=== PATIENT | female | born 1950 | race Caucasian/White ===

== ENCOUNTER → 2017-04-12 | Outpatient (CLI) | payer MEDICARE, OTHER ==
--- NOTE | 2017-04-13 10:12 | MM ---
Reason for exam: screening (asymptomatic). Last mammogram was performed 3 years and 5 months ago. Physical Findings: A clinical breast exam by your physician is recommended on an annual basis and results should be correlated with mammographic findings. MG Screening Mammo w CAD Bilateral CC and MLO view(s) were taken. Prior study comparison: November 12, 2013, bilateral digital screening mammo w/CAD. December 08, 2011, mammogram, performed at [facility]. There are scattered fibroglandular densities. There is no discrete abnormality. ASSESSMENT: Negative, BI-RAD 1 RECOMMENDATION: Routine screening mammogram of both breasts in 1 year.
== END | disposition home or self-care (01) ==
LOC: RADMAMWWP 16:55
PROVIDERS: ATTEND Family Medicine
DX: Z12.31 Encounter for screening mammogram for malignant neoplasm of breast (principal)

== ENCOUNTER → 2017-06-07 | Outpatient (CLI) | payer MEDICARE, OTHER ==
[2017-06-07 08:31] LABS: EKG EKG PERFORMED
[2017-06-07 10:10] LABS: CHCM 33.6; HDW 2.71; HGB 9.5 gm/dL (11.4-16.0); MCH 31.6 pg (25.0-35.0); MCV 92.9 fL (80.0-100.0); Mean Platelet Volume 7.3; RBC 3.01 m/uL (3.80-5.40); RDW 14.4 % (11.5-15.5); WBC 9.3 k/uL (3.8-10.6)
[2017-06-07 10:37] LABS: Blood Urea Nitrogen 73 mg/dL (7-17); Potassium 5.2 mmol/L (3.5-5.1)
[2017-06-07 10:41] LABS: Non-African American GFR(MDRD) 14 (>60 ml/min/1.73 sqM)
== END ==
LOC: LABPAT 08:21
PROVIDERS: ATTEND Anesthesiology
DX: Z01.812 Encounter for preprocedural laboratory examination (principal)
CPT/HCPCS: 82565; 84132; 84520; 85027; 93005

== ENCOUNTER 2017-06-08 06:30 | Day surgery (SDC) | payer MEDICARE, OTHER ==
[2017-06-06 14:19] VITALS: BMI 29.0
[~2017-06-08 06:30] MED LIST changes: -HEPARIN SODIUM,PORCINE 5,000 UNIT/ML 1 ML VIAL SQ ONE; +LACTATED RINGERS 1,000 ML IV SCH; +MIDAZOLAM 2 MG/2 ML VIAL IV PRN; +ONDANSETRON 4 MG/2 ML VIAL IVP ONE; -ceFAZolin 2 GM in SODIUM CHLORIDE 0.9% 100 ML IVPB ONE; +fentaNYL (PF) 50 MCG/ML 2 ML AMP IV PRN
[2017-06-08] MEDS ORDERED: SODIUM CHLORIDE 0.9% 1,000 ML IV ONE (07:02)
[2017-06-08] MEDS ORDERED: LIDOCAINE 1% 20 ML VIAL (10MG/ML) FOR IV START INTRADERMA ONE (07:09)
[2017-06-08] MEDS ORDERED: DEXAMETHASONE SOD PHOS (MDV) 100 MG/10 ML VIAL IVP ONE (07:09)
[2017-06-08] MEDS ORDERED: HEPARIN SODIUM,PORCINE 5,000 UNIT/ML 1 ML VIAL SQ STA (07:54)
[2017-06-08] MEDS ORDERED: ceFAZolin 2 GM in SODIUM CHLORIDE 0.9% 100 ML IVPB STA (07:54)
--- NOTE | 2017-06-08 07:54 | P.GSHP ---
History of Present Illness H&P Date: 06/08/17 Chief Complaint: Renal failure Patient here today for peritoneal dialysis catheter insertion. She has a long- standing history of progressive renal insufficiency. She is now requiring dialysis. She is currently not on dialysis. (The options of hemodialysis and peritoneal dialysis have been discussed. She is most interested in peritoneal dialysis. Past Medical History Past Medical History: Diabetes Mellitus, Fibromyalgia, Hearing Disorder / Deafness, Hyperlipidemia, Hypertension, Myocardial Infarction (SC), Osteoarthritis (OA), Renal Disease, Thyroid Disorder Additional Past Medical History / Comment(s): ANEMIA, GOUT., STATES MRSA AFTER KNEE INJECTIONS (2004), COCHLEAR IMPLANT RIGHT EAR- USES A MAGNETIC PROCESSOR TO HEAR., DEAF LEFT EAR , NO SIGN LANGUAGE, CAN LIP READ ., PT HAD CATARACT SURGERY TODAY(06/06/17), PT IS APPLYING FOR KIDNEY TRANSPLANT LIST AT [facility]. Last Myocardial Infarction Date:: 2003 History of Any Multi-Drug Resistant Organisms: MRSA Date of last positivie culture/infection: 2004. Bilateral legs MDRO Source:: patient Past Surgical History: Ear Surgery, Heart Catheterization With Stent, Hysterectomy, Joint Replacement, Orthopedic Surgery Additional Past Surgical History / Comment(s): Heel spurs (16 yrs old), thyroidectomy, right hip replacement 2003, shoulder rotator cuff , R ear cochlear implant., cataract surgery April, and 06/06/17. Past Anesthesia/Blood Transfusion Reactions: No Reported Reaction Date of Last Stent Placement:: 2003 Past Psychological History: Depression Smoking Status: Former smoker Past Alcohol Use History: None Reported Additional Past Alcohol Use History / Comment(s): QUIT SMOKING 30 YEARS AGO. SMOKED 1 PPD. SMOKED APPROX 20 YEARS. Past Drug Use History: None Reported - Past Family History Father Family Medical History: CVA/TIA, Myocardial Infarction (SC) Mother Additional Family Medical History / Comment(s): Triple bypass surgery, emphasema , epilepsy Medications and Allergies Home Medications Medication Instructions Recorded Confirmed Type DULoxetine HCL [Cymbalta] 60 mg PO HS 06/21/14 06/08/17 History Metoprolol Tartrate [Lopressor] 100 mg PO BID 06/21/14 06/08/17 History Atorvastatin Calcium [Lipitor] 10 mg PO HS 06/22/14 06/08/17 History Levothyroxine Sodium [Synthroid] 150 mcg PO DAILY 12/04/15 06/08/17 History Acetaminophen [Tylenol Extra 1,000 mg PO TID PRN 06/06/17 06/08/17 History Strength] Allopurinol [Zyloprim] 100 mg PO DAILY 06/06/17 06/08/17 History Aspirin 325 mg PO DAILY 06/06/17 06/08/17 History Besifloxacin HCl [Besivance] 1 drop LEFT EYE BID 06/06/17 06/08/17 History Calcitriol [Rocaltrol] 0.25 mcg PO WEEKLY 06/06/17 06/08/17 History Difluprednate [Durezol] 1 drop LEFT EYE BID 06/06/17 06/08/17 History Ergocalciferol (Vitamin D2) 50,000 unit PO QMONTH 06/06/17 06/08/17 History [Vitamin D2] Furosemide [Lasix] 40 mg PO DAILY PRN 06/06/17 06/08/17 History Nepafenac [Ilevro] 1 drop BOTH EYES DAILY 06/06/17 06/08/17 History Omeprazole [PriLOSEC] 20 mg PO AC-BRKFST 06/06/17 06/08/17 History Sevelamer [Renvela] 800 mg PO AC-TID 06/06/17 06/08/17 History Ubidecarenone [Co Q-10] 100 mg PO DAILY 06/06/17 06/08/17 History amLODIPine [Norvasc] 10 mg PO DAILY 06/06/17 06/08/17 History cloNIDine HCL [Catapres] 0.2 mg PO TID 06/06/17 06/08/17 History hydrALAZINE HCL [Apresoline] 75 mg PO TID 06/06/17 06/08/17 History Allergies Allergy/AdvReac Type Severity Reaction Status Date / Time codeine Allergy Hallucinati Verified 06/08/17 07:03 ons morphine Allergy Hallucinati Verified 06/08/17 07:03 ons Surgical - Exam Vital Signs Temp Pulse Resp BP Pulse Ox 96.4 F L 70 16 161/75 99 06/08/17 07:01 06/08/17 07:01 06/08/17 07:01 06/08/17 07:01 06/08/17 07:01 Physical exam: General: Well-developed, well-nourished HEENT: Normocephalic, sclerae nonicteric Abdomen: Nontender, nondistended Extremities: No edema Neuro: Alert and oriented Results - Labs 06/08/17 06:50 Diabetes panel 06/08/17 Range/Units 06:50 Potassium 4.7 (3.5-5.1) mmol/L Pituitary panel 06/08/17 Range/Units 06:50 Potassium 4.7 (3.5-5.1) mmol/L Adrenal panel 06/08/17 Range/Units 06:50 Potassium 4.7 (3.5-5.1) mmol/L Assessment and Plan (1) Renal failure Narrative/Plan: Will proceed with peritoneal dialysis catheter insertion today. Risks of bleeding, catheter malfunction, bowel injury were discussed. She understands and wishes to proceed. Status: Acute
[2017-06-08 08:00] LABS: Glucose,Whole Blood 138 mg/dL (75-99)
[2017-06-08] MEDS ORDERED: MIDAZOLAM 2 MG/2 ML VIAL ONE (08:26)
[2017-06-08] MEDS ORDERED: PROPOFOL 10 MG/ML 20 ML VIAL IV ONE (08:26)
[2017-06-08] MEDS ORDERED: fentaNYL (PF) 50 MCG/ML 2 ML AMP ONE (08:26)
[2017-06-08] MEDS ORDERED: BUPIVACAINE (PF) 0.25% 30 ML VIAL SQ ONE ×4 (08:40)
[2017-06-08] MEDS ORDERED: MINERAL OIL 1 APPLIC/ML OIL MISCELLANE ONE (08:40)
[2017-06-08] MEDS ORDERED: traMADol 50 MG TAB PO PRN (09:34)
[2017-06-08] MEDS ORDERED: NALOXONE 0.4 MG/ML 1 ML VIAL IV PRN (09:34)
--- NOTE | 2017-06-08 09:37 | P.PCN ---
Date of Procedure: 06/08/17 Preoperative Diagnosis: Postoperative Diagnosis: Procedure(s) Performed: PREOPERATIVE DIAGNOSIS: Renal failure POSTOPERATIVE DIAGNOSIS: Same PROCEDURE: Peritoneal dialysis catheter insertion SURGEON: Russ EBL: Minimal ANESTHESIA: Sedation plus local COMPLICATIONS: None OPERATIVE PROCEDURE: The patient was placed in the operative table in the supine position. Her abdomen was prepped and draped in usual sterile fashion. A small vertical incision was made in the right periumbilical location. Dissection down through the subcutaneous tissues took place using electrocautery. The anterior rectus was divided vertically using the scalpel. The rectus was bluntly. The posterior rectus was visualized. An 0 Vicryl pursestring was placed. A small opening in the posterior rectus fascia and peritoneum took place using a Metzenbaum scissors. There were no adhesions to the suture that was placed. The pigtail catheter was advanced into the pelvis over a stylette. No resistance was met. The inner cuff was secured to the fascia using the 0 Vicryl pursestring that was placed. The catheter was tunneled to an exit site in the right lateral lower quadrant. The catheter was connected to the 1 L bag of saline and approximated 800 mL of saline was easily introduced into the peritoneal cavity. The fluid was then allowed to evacuate. The majority of the fluid was returned. A few small superficial vessels were seen running through the rectus and or ligated using 3-0 Vicryl ties. The anterior rectus fascia was then reapproximated using a running 0 Vicryl stitch. The subcutaneous tissues reprepped using 3-0 Vicryl sutures and the skin using 4-0 Monocryl sutures. The outpatient dialysis adapter was applied to the end of the catheter. A sterile dressings then applied after Steri-Strips were placed over the incision. DISPOSITION: Stable to recovery room Implants: Indications for Procedure: Operative Findings: Description of Procedure:
[2017-06-08 09:38] VITALS: TEMP 97.8
[2017-06-08 09:42] VITALS: RESP 16
[2017-06-08 10:00] LABS: Glucose,Whole Blood 176 mg/dL (75-99)
[2017-06-08 10:59] LABS: Glucose,Whole Blood 157 mg/dL (75-99)
[2017-06-08 11:06] VITALS: PULSE 72
[2017-06-08 11:40] VITALS: BP 137/67
== END 2017-06-08 11:46 | disposition home or self-care (01) ==
LOC: OR 06:30
PROVIDERS: ATTEND Surgery
DX: I12.0 Hypertensive chronic kidney disease with stage 5 chronic kidney disease or end stage renal disease (principal); E11.22 Type 2 diabetes mellitus with diabetic chronic kidney disease; N18.6 End stage renal disease; M79.7 Fibromyalgia; E78.5 Hyperlipidemia, unspecified; M19.90 Unspecified osteoarthritis, unspecified site; E07.9 Disorder of thyroid, unspecified; M10.9 Gout, unspecified; H91.92 Unspecified hearing loss, left ear; F32.9 Major depressive disorder, single episode, unspecified; K21.9 Gastro-esophageal reflux disease without esophagitis; I25.10 Atherosclerotic heart disease of native coronary artery without angina pectoris; Z95.5 Presence of coronary angioplasty implant and graft; Z86.14 Personal history of Methicillin resistant Staphylococcus aureus infection; I25.2 Old myocardial infarction; Z79.82 Long term (current) use of aspirin; Z79.899 Other long term (current) drug therapy; Z88.5 Allergy status to narcotic agent; Z87.891 Personal history of nicotine dependence
CPT/HCPCS: 84132; 49421; C1752; J2250; J1644; J0690; J2405; J3010; J1100; J2704

== ENCOUNTER → 2017-06-08 | Day surgery (SDC) | payer MEDICARE, OTHER ==
[~2017-06-08] MED LIST: HEPARIN SODIUM,PORCINE 5,000 UNIT/ML 1 ML VIAL SQ ONE; ceFAZolin 2 GM in SODIUM CHLORIDE 0.9% 100 ML IVPB ONE
== END ==
LOC: OR 06:22
PROVIDERS: ATTEND Surgery
DX: N19 Unspecified kidney failure (principal)

== ENCOUNTER → 2017-07-21 | Outpatient (CLI) | payer MEDICARE, OTHER ==
--- NOTE | 2017-07-21 16:16 | US ---
EXAMINATION TYPE: US venous doppler duplex LE RT DATE OF EXAM: 07/21/2017 3:42 PM COMPARISON: NONE CLINICAL HISTORY: M79.604 PAIN IN RT LEG. Patient stated has skin redness,swelling and pain in lower right posterior calf x 2 days SIDE PERFORMED: Right TECHNIQUE: The lower extremity deep venous system is examined utilizing real time linear array sonog tarcy with graded compression, doppler sonography and color-flow sonography. VESSELS IMAGED: Common Femoral Vein Deep Femoral Vein Greater Saphenous Vein * Femoral Vein Popliteal Vein Small Saphenous Vein * Proximal Calf Veins (* superficial vessels) Right Leg: Negative for DVT. Is positive for non occluding short segment Small Saphenous Vein Superf icial Vein Thrombosis at lower SSV. Tech findings called to Dr Gibbons at exam's end. IMPRESSION: Grayscale, color doppler, spectral doppler imaging performed of the deep veins of the lo wer extremities. There is normal flow, compressibility, vascular waveforms in Deep Venous System. E xamination is positive for nonoccluding superficial vein thrombosis of the saphenous vein.
== END | disposition home or self-care (01) ==
LOC: RADUSWWP 14:43
PROVIDERS: ATTEND Family Medicine
DX: I82.811 Embolism and thrombosis of superficial veins of right lower extremity (principal); R79.89 Other specified abnormal findings of blood chemistry

== ENCOUNTER 2018-10-16 06:52 | Day surgery (SDC) | payer MEDICARE, OTHER ==
[2018-10-11 14:20] VITALS: BMI 32.4
[~2018-10-16 06:52] MED LIST changes: -MIDAZOLAM 2 MG/2 ML VIAL IV PRN; -ONDANSETRON 4 MG/2 ML VIAL IVP ONE; -fentaNYL (PF) 50 MCG/ML 2 ML AMP IV PRN
[2018-10-16] MEDS ORDERED: SODIUM CHLORIDE 0.9% 1,000 ML IV ONE (07:15)
[2018-10-16 07:24] VITALS: TEMP 97.7
[2018-10-16 07:30] LABS: Glucose,Whole Blood 161 mg/dL (75-99)
[2018-10-16] MEDS ORDERED: LIDOCAINE 1% INJ 10MG/ML (20 ML MDV) ONE (08:20)
[2018-10-16] MEDS ORDERED: PROPOFOL 10 MG/ML 20 ML VIAL IV ONE (08:20)
--- NOTE | 2018-10-16 08:54 | P.PCN ---
Date of Procedure: 10/16/18 Procedure(s) Performed: Procedure: Total colonoscopy. Preoperative diagnosis: Blood in the stools. Postoperative diagnosis: Low-grade internal hemorrhoids without bleeding at the time of this exam, otherwise, exam to the cecum did not show any significant findings. Preparation: HalfLytely prep. Sedation: Was provided by anesthesia. Brief clinical history: The patient is a 67-year-old female who is scheduled for this evaluation because of finding of blood in her stools. She also described occasions where she sees fresh blood. She has tendency to constipation but no other GI complaints. She had a prior colonoscopy around 7 years ago. No upper GI complaints. Has end-stage renal disease currently on peritoneal dialysis. This evaluation is to assess for neoplasia. Procedure: With the patient on her left lateral decubitus position and after informed consent and adequate sedation, the perianal area was inspected and it did not show any fissures or fistulas. There were no masses felt on digital rectal examination. The Olympus CFH 190L video colonoscope was then inserted in the rectum in the usual fashion and advanced to the cecum. The mucosa appeared healthy. The preparation was less than ideal on the right side and cecum and I spent sometime washing and suctioning in that area. There was a diminutive polyp that I did not see later to remove. Elsewhere, the bowel appeared healthy with no large polyps or tumors or any potential sources of bleeding. I retroflexed the endoscope in the rectum before the endoscope was withdrawn. Low-grade internal hemorrhoids were noted but there was no bleeding. The patient tolerated the procedure well. Plan: The patient was reassured. Discussed dietary measures and local care for hemorrhoids. She will follow-up with you as planned and I recommended repeat exam in 5 years.
[2018-10-16 09:04] VITALS: BP 150/89; PULSE 75; RESP 18
== END 2018-10-16 09:49 | disposition home or self-care (01) ==
LOC: ORWHC2ENDO 06:52
DX: K64.8 Other hemorrhoids (principal); I12.0 Hypertensive chronic kidney disease with stage 5 chronic kidney disease or end stage renal disease; E11.22 Type 2 diabetes mellitus with diabetic chronic kidney disease; N18.6 End stage renal disease; Z99.2 Dependence on renal dialysis; Z79.84 Long term (current) use of oral hypoglycemic drugs; E78.5 Hyperlipidemia, unspecified; M19.90 Unspecified osteoarthritis, unspecified site; I25.10 Atherosclerotic heart disease of native coronary artery without angina pectoris; Z95.5 Presence of coronary angioplasty implant and graft; M79.7 Fibromyalgia; J44.9 Chronic obstructive pulmonary disease, unspecified; Z95.1 Presence of aortocoronary bypass graft; E07.9 Disorder of thyroid, unspecified; F32.9 Major depressive disorder, single episode, unspecified; M10.9 Gout, unspecified; Z79.82 Long term (current) use of aspirin; Z79.890 Hormone replacement therapy; Z79.891 Long term (current) use of opiate analgesic; Z79.899 Other long term (current) drug therapy; Z88.5 Allergy status to narcotic agent
CPT/HCPCS: 84132; 45378; J2001; J2704

== ENCOUNTER → 2019-02-28 | Outpatient (CLI) | payer MEDICARE, OTHER ==
--- NOTE | 2019-03-01 07:56 | BD ---
EXAMINATION TYPE: Axial Bone Density DATE OF EXAM: 02/28/2019 COMPARISON: NONE CLINICAL HISTORY: Height: 66 Weight: 194.0 FRAX RISK QUESTIONS: Alcohol (3 or more units per day): no Family History (Parent hip fracture): no Glucocorticoids (More than 3mos): no (Ex: prednisone, prednisolone, methylprednisolone, dexamethasone, and hydrocortisone). History of Fracture in Adulthood: yes Secondary Osteoporosis: 1. Type 1 Diabetes: no 2. Hyperthyroidism: no 3. Menopause before 45: yes 4. Malnutrition: no 5. Chronic liver disease: no Rheumatoid Arthritis: no Current Tobacco Use: no RISK FACTORS HISTORY OF: Hip Fracture (Right/Left): right When: 15 years History of Wrist Fracture: left wrist When: 8 years ago Surgery to Spine/Hip(right/left)/Wrist (right/left): right hip When: 14 years ago Family History of Osteoporosis: no Active: no Diet low in dairy products/other sources of calcium: no Postmenopausal woman: hysterectomy at age 38 Adrenal Insufficiency: yes MEDICATIONS: kidney meds, bp meds, diabetic meds, heart meds Thyroid Medications: thyroid How Lon years ago Additional History: waiting for a kidney transplant EXAM MEASUREMENTS: Bone mineral densitometry was performed using the [employer] System. Bone mineral density as measured about the Lumbar spine is: ----- L1-L4(G/cm2): 1.785 T Score Values are as follows: ----- L2: 4.5 ----- L3: 4.6 ----- L4: 6.4 ----- L1-L4: 5.0 Bone mineral density : baseline Bone mineral density about the L hip (g/cm2): 1.139 T Score values are as follows: -----L Neck: 0.7 ----L Total: 0.5 Bone mineral density : baseline IMPRESSION: Normal (Values between +1 and -1 indicate normal bone mass). Consider repeating this study in 5 year s or sooner if there is some new clinical indication. NOTE: T-SCORE=SD OF THE YOUNG ADULT MEAN.
== END | disposition home or self-care (01) ==
LOC: RADBDWWP 12:52
PROVIDERS: ATTEND Family Medicine
DX: Z13.820 Encounter for screening for osteoporosis (principal)
CPT/HCPCS: 77080